=== PATIENT | female | born 1990 ===

== ENCOUNTER 2018-01-09 13:15 | Inpatient (IN) | payer OTHER ==
[~2018-01-09] VITALS: Ht 162.6 cm; Wt 3.6 kg
[2018-01-24] MEDS ORDERED: PRENATABS RX T1 EACH PO (13:24)
[2018-01-29] MEDS ORDERED: OXYC1TAB9 PO (09:32)
[2018-01-29] MEDS ORDERED: MIRALAX17 GM PO (09:32)
== END 2018-01-29 12:37 | disposition home or self-care (01) | DRG 766 ==
LOC: O/R 01-27 06:20 → OB/GYN 01-27 11:23 → SURG-SUITE 01-27 12:40 → LDR 01-27 13:15 → SURG-SUITE 01-29 12:37 → LDR 01-29 13:15
PROVIDERS: Specialist
PROC: 4A1HXCZ Monitoring of Products of Conception, Cardiac Rate, External Approach (ICD-10-PCS; 2018-01-27)
PROC: 10D00Z1 Extraction of Products of Conception, Low, Open Approach (ICD-10-PCS; principal; 2018-01-27 18:45)
DX: O32.8XX0 Maternal care for other malpresentation of fetus, not applicable or unspecified (principal); Z3A.39 39 weeks gestation of pregnancy; Z37.0 Single live birth